=== PATIENT | male | born 1960 | race Caucasian/White ===

== ENCOUNTER 2021-02-07 09:38 | Inpatient (IN) ==
[2021-02-07] MEDS ORDERED: Albuterol 2.5 MG/3 ML NEBULIZER IH ONE (09:59)
[2021-02-07] MEDS ORDERED: methylPREDNISolone 125 MG/2 ML VIAL IVP ONE (09:59)
[2021-02-07] MEDS ORDERED: Ipratropium/Albuterol Neb 3 ML IH ONE (09:59)
[2021-02-07 10:20] LABS: Basophils # 0.1 K/mcL (0.0-0.2); Basophils % 1.1 %; Eosinophils # 0.3 K/mcL (0.0-0.6); Eosinophils % 3.3 %; Hematocrit 47.6 % (37.5-50.1); Hemoglobin 15.5 g/dL (12.9-16.9); Immature Granulocytes % 0.3 % (0-4); Lymphocytes # 1.2 K/mcL (0.6-4.6); Lymphocytes % 12.9 %; Mean Corpuscular HGB Conc 32.6 g/dL (31.6-35.5); Mean Corpuscular Volume 92.1 fL (83.0-100.0); Mean Platelet Volume 11.3 fL (9.4-12.4); Monocytes # 0.8 K/mcL (0.0-1.3); Monocytes % 8.7 %; Neutrophils # 6.8 K/mcL (1.6-8.9); Platelet Count 191 K/mcL (140-400); Red Blood Count 5.17 M/mcL (4.19-5.50); Red Cell Distribution Width 13.2 % (11.5-14.5); Segmented Neutrophils % 73.7 %; White Blood Count 9.3 K/mcL (4.3-11.1)
[2021-02-07 10:35] LABS: VBG HCO3 29 mEq/L (21-27); VBG PCO2 55 mmHg (41-51); VBG PH 7.33 pH Units (7.32-7.42); VBG PO2 65 mmHg (25-50)
[2021-02-07 10:36] LABS: Albumin 4.1 g/dL (3.5-5.7); Albumin/Globulin Ratio 1.4 (1.1-2.2); Bilirubin,Direct 0.2 mg/dL (0.0-0.2); Bilirubin,Indirect 0.6 mg/dL (0.0-1.0); Bilirubin,Total 0.8 mg/dL (0.3-1.0); Globulin 2.9 g/dL (2.4-3.5)
[2021-02-07 10:37] LABS: Troponin I < 0.03 ng/mL (< 0.04)
[2021-02-07 10:47] LABS: BUN/Creatinine Ratio 21 (6-26); Blood Urea Nitrogen 17 mg/dL (8-23); Carbon Dioxide 30 mEq/L (23-29); Chloride 99 mEq/L (98-107); Glucose 135 mg/dL (70-105); Osmolality,Calculated 284 (280-300); Potassium 4.4 mEq/L (3.5-5.1); Sodium 135 mEq/L (136-145); eGFR For African Americans > 60 (> 60); eGFR For Non-African Americans > 60 (> 60)
[2021-02-07] MEDS ORDERED: Fluticasone Propionate Nasal 50 MCG/SPRAY BOTTLE NS PRN (13:44)
[2021-02-07] MEDS ORDERED: Melatonin 3 MG TABLET PO PRN (13:55)
[2021-02-07] MEDS ORDERED: Mag Hydrox/Al Hydrox/Simeth 30 ML UDC PO PRN (13:55)
[2021-02-07] MEDS ORDERED: MOM Conc 10 ML UD.LIQ PO PRN (13:55)
[2021-02-07] MEDS ORDERED: Ondansetron 4 MG/2 ML VIAL IVP PRN (13:55)
[2021-02-07] MEDS ORDERED: Acetaminophen 325 MG TABLET PO PRN (13:55)
[2021-02-07] MEDS ORDERED: Naloxone 0.4 MG/ML INJ IVP PRN (13:55)
[2021-02-07] MEDS ORDERED: Ondansetron ODT 4 MG TAB.RAPDIS SL PRN (13:55)
[2021-02-07] MEDS ORDERED: Perflutren Lipid Microsphere 1.3 ML in 0.9 % Sodium Chloride 8.7 ML IVP PRN (14:34)
[2021-02-07] MEDS: Ipratropium/Albuterol Neb 3 ML IH SCH ×2 (15:56→21:17)
[2021-02-07] MEDS: levoFLOXacin 500 MG/100 ML 500 MG/100 ML BAG IVPB SCH (16:21)
[2021-02-07] MEDS: MethylPREDNISolone 40 MG/ML VIAL IVP SCH ×2 (16:21→23:38)
[2021-02-07 17:04] LABS: Bilirubin,Urine Negative (Negative); Blood,Urine Trace-intact (Negative); Clarity,Urine Clear (Clear); Color,Urine Yellow (Yellow); Glucose,Urine (UA) >=1000 mg/dL (Normal); Ketones,Urine Negative (Negative); Leukocyte Esterase,Urine Negative (Negative); Nitrite,Urine Negative (Negative); Protein,Urine Negative (Neg-Trace); Urobilinogen,Urine Normal (Normal)
[2021-02-07] MEDS: traZODone 50 MG TABLET PO SCH (22:08)
[2021-02-08] MEDS: Ipratropium/Albuterol Neb 3 ML IH SCH ×4 (03:49→21:29)
[2021-02-08] MEDS: *HR* Enoxaparin 40 MG/0.4 ML SYRINGE SQ SCH (05:00)
[2021-02-08 06:11] LABS: Basophils % 0.1 %; Hematocrit 45.4 % (37.5-50.1); Hemoglobin 14.6 g/dL (12.9-16.9); Immature Granulocytes % 0.7 % (0-4); Lymphocytes # 0.6 K/mcL (0.6-4.6); Lymphocytes % 5.5 %; Mean Corpuscular HGB Conc 32.2 g/dL (31.6-35.5); Mean Corpuscular Hemoglobin 29.8 pg (28.0-33.3); Mean Corpuscular Volume 92.7 fL (83.0-100.0); Monocytes # 0.4 K/mcL (0.0-1.3); Monocytes % 3.3 %; Neutrophils # 10.3 K/mcL (1.6-8.9); Platelet Count 200 K/mcL (140-400); Segmented Neutrophils % 90.4 %; White Blood Count 11.4 K/mcL (4.3-11.1)
[2021-02-08 06:31] LABS: Alanine Aminotransferase 17 Units/L (7-52); Albumin 4.1 g/dL (3.5-5.7); Albumin/Globulin Ratio 1.5 (1.1-2.2); Alkaline Phosphatase 58 Units/L (34-104); Aspartate Amino Transferase 13 Units/L (13-39); BUN/Creatinine Ratio 18 (6-26); Bilirubin,Total 0.5 mg/dL (0.3-1.0); Blood Urea Nitrogen 15 mg/dL (8-23); Calcium 8.9 mg/dL (8.6-10.3); Carbon Dioxide 32 mEq/L (23-29); Chloride 98 mEq/L (98-107); Globulin 2.7 g/dL (2.4-3.5); Glucose 245 mg/dL (70-105); Magnesium 2.2 mg/dL (1.6-2.6); Osmolality,Calculated 287 (280-300); Phosphorous 3.7 mg/dL (2.7-4.5); Potassium 5.1 mEq/L (3.5-5.1); Sodium 134 mEq/L (136-145); Total Protein 6.8 g/dL (6.4-8.9); eGFR For African Americans > 60 (> 60); eGFR For Non-African Americans > 60 (> 60)
[2021-02-08] MEDS: Aspirin Enteric Coated 81 MG Tablet PO SCH (10:15)
[2021-02-08] MEDS: Furosemide 40 MG TABLET PO SCH (10:15)
[2021-02-08] MEDS: MethylPREDNISolone 40 MG/ML VIAL IVP SCH ×3 (10:15→23:15)
[2021-02-08] MEDS: Cholecalciferol (D-3) 1,000 UNIT (25MCG) TABLET PO SCH (10:15)
[2021-02-08] MEDS: Zinc Gluconate [Zinc] 50 MG Tablet PO SCH (10:16)
[2021-02-08] MEDS: Tiotropium 10 INH DOSE IH SCH (10:27)
[2021-02-08] MEDS: Budesonide/Formoterol 160/4.5 1 PUFF INH IH SCH ×2 (10:28→21:29)
[2021-02-08 10:35] LABS: Estimated Average Glucose 169 mg/dl; Hemoglobin A1C 7.5 %
[2021-02-08] MEDS: levoFLOXacin 500 MG/100 ML 500 MG/100 ML BAG IVPB SCH (16:46)
[2021-02-08] MEDS: traZODone 50 MG TABLET PO SCH (21:52)
[2021-02-09] MEDS: Ipratropium/Albuterol Neb 3 ML IH SCH ×4 (04:20→21:51)
[2021-02-09] MEDS: *HR* Enoxaparin 40 MG/0.4 ML SYRINGE SQ SCH (05:31)
[2021-02-09 07:28] LABS: Basophils % 0.1 %; Hematocrit 43.8 % (37.5-50.1); Hemoglobin 13.9 g/dL (12.9-16.9); Immature Granulocytes % 0.7 % (0-4); Lymphocytes % 6.6 %; Mean Corpuscular HGB Conc 31.7 g/dL (31.6-35.5); Mean Corpuscular Volume 94.6 fL (83.0-100.0); Mean Platelet Volume 11.6 fL (9.4-12.4); Monocytes # 0.6 K/mcL (0.0-1.3); Monocytes % 4.2 %; Neutrophils # 12.7 K/mcL (1.6-8.9); Platelet Count 167 K/mcL (140-400); Red Blood Count 4.63 M/mcL (4.19-5.50); Red Cell Distribution Width 13.1 % (11.5-14.5); Segmented Neutrophils % 88.4 %; White Blood Count 14.4 K/mcL (4.3-11.1)
[2021-02-09 07:43] LABS: BUN/Creatinine Ratio 22 (6-26); Blood Urea Nitrogen 17 mg/dL (8-23); Calcium 8.5 mg/dL (8.6-10.3); Carbon Dioxide 32 mEq/L (23-29); Chloride 99 mEq/L (98-107); Glucose 237 mg/dL (70-105); Osmolality,Calculated 291 (280-300); Potassium 4.7 mEq/L (3.5-5.1); Sodium 136 mEq/L (136-145); eGFR For African Americans > 60 (> 60); eGFR For Non-African Americans > 60 (> 60)
[2021-02-09] MEDS: Cholecalciferol (D-3) 1,000 UNIT (25MCG) TABLET PO SCH (09:03)
[2021-02-09] MEDS: Aspirin Enteric Coated 81 MG Tablet PO SCH (09:04)
[2021-02-09] MEDS: MethylPREDNISolone 40 MG/ML VIAL IVP SCH ×2 (09:04→17:05)
[2021-02-09] MEDS: *HR* Metformin 500 MG TABLET PO SCH (09:04)
[2021-02-09] MEDS: Furosemide 40 MG TABLET PO SCH (09:04)
[2021-02-09] MEDS: Zinc Gluconate [Zinc] 50 MG Tablet PO SCH (09:05)
[2021-02-09] MEDS: Budesonide/Formoterol 160/4.5 1 PUFF INH IH SCH ×2 (10:58→21:52)
[2021-02-09] MEDS: Tiotropium 10 INH DOSE IH SCH (10:58)
[2021-02-09] MEDS: levoFLOXacin 500 MG/100 ML 500 MG/100 ML BAG IVPB SCH (15:59)
[2021-02-09] MEDS: traZODone 50 MG TABLET PO SCH (21:51)
[2021-02-10] MEDS: Ipratropium/Albuterol Neb 3 ML IH SCH (03:55)
[2021-02-10] MEDS: *HR* Enoxaparin 40 MG/0.4 ML SYRINGE SQ SCH (05:01)
[2021-02-10] MEDS: MethylPREDNISolone 40 MG/ML VIAL IVP SCH (05:03)
[2021-02-10 08:20] VITALS: BP 144/84; PULSE 59; RESP 16; TEMP 98; O2SAT 94
[2021-02-10] MEDS: Cholecalciferol (D-3) 1,000 UNIT (25MCG) TABLET PO SCH (09:02)
[2021-02-10] MEDS: Furosemide 40 MG TABLET PO SCH (09:02)
[2021-02-10] MEDS: *HR* Metformin 500 MG TABLET PO SCH (09:02)
[2021-02-10] MEDS: Aspirin Enteric Coated 81 MG Tablet PO SCH (09:02)
[2021-02-10] MEDS: Zinc Gluconate [Zinc] 50 MG Tablet PO SCH (09:03)
== END 2021-02-10 10:46 | disposition home or self-care (01) | DRG 191 ==
LOC: INPGRE 09:38 → EMEROOGRE 09:38 → INPGRE 12:15
PROVIDERS: ADMIT Family Medicine; ATTEND Family Medicine